=== PATIENT | male | born 1955 | race Caucasian/White ===

== ENCOUNTER 2024-03-05 16:38 | Emergency (ER) | payer OTHER ==
[~2024-03-05] VITALS: Ht 175.3 cm; Wt 88.4 kg
[2024-03-05] VITALS (13 sets, daily range): BP systolic 125–159; BP diastolic 73–101
[~2024-03-05 16:38] MED LIST: JANTOVEN2 MG OR; JANTOVEN5 MG OR; LORTAB 5 OR; OYSTER-CAL500 MG OR; PRILOSEC20 MG OR
[2024-03-05 17:28] LABS: BASO% 0.7 % (0-3); EOS% 3.2 % (0-8); HEMATOCRIT 38.9 % (39.0-50.0); IMMATURE GRANULOCYTES 0.2 % (0.0-5.0); LYMPH% 21.5 % (15-41); MEAN CELL VOLUME 90.9 fL CALC (80.0-100.0); MEAN CORPUSCULAR HGB 30.4 pG CALC (26.0-32.0); MEAN CORPUSCULAR HGB CONC 33.4 g/dL CAL (32.0-36.0); MONO% 12.6 % (2-13); NEUT# 3.33 thou/uL (1.82-7.42); NEUT% 61.8 % (42-76); RED BLOOD COUNT 4.28 mill/uL (4.70-6.10)
[2024-03-05 17:45] LABS: ALBUMIN 4.3 g/dL (3.2-5.0); BILIRUBIN, TOTAL 0.6 mg/dL (0.2-1.3); CREATININE 1.5 mg/dL (0.7-1.3); POTASSIUM 4.5 mmol/l (3.5-5.1); TOTAL PROTEIN 7.3 g/dL (6.3-8.2)
[2024-03-05] MEDS ORDERED: LISINOPRIL20 M1 PO (21:34)
[2024-03-05] MEDS ORDERED: ENOXAPARIN SODIUM 30 MG/0.3 ML INJ IV ONE (21:35)
[2024-03-05] MEDS ORDERED: ATORVASTATIN CA10 MG PO (21:35)
[2024-03-05] MEDS ORDERED: MAXZIDE-25MG1 COMBO PO (21:36)
[2024-03-05] MEDS ORDERED: ASPIRINCHW 81MG PO (21:37)
[2024-03-05] MEDS ORDERED: LOVENOX 8080 MG/0.8 SC (22:03)
[2024-03-05] MEDS ORDERED: ENOXAPARIN SODIUM 100 MG/ML SYR SC ONE (22:20)
== END 2024-03-05 22:35 | disposition home or self-care (01) | DRG 301 ==
LOC: ED 16:38
PROVIDERS: Nurse Practitioner
DX: I82.402 Acute embolism and thrombosis of unspecified deep veins of left lower extremity (principal); Z86.718 Personal history of other venous thrombosis and embolism
CPT/HCPCS: J1650